=== PATIENT | male | born 1980 | race Caucasian/White ===

== ENCOUNTER 2024-08-29 09:01 | Emergency (ER) | payer OTHER, SELFPAY ==
[2024-08-29 09:01] VITALS: BP 161/100; PULSE 60; RESP 14; TEMP 36.6; O2SAT 98; BMI 25.7
--- NOTE | 2024-08-29 09:12 | EX.ED.UPPERE ---
HPI History of Present Illness HPI Narrative: Healthy 43-year-old male, [id number], injured his left ring finger at the tip and nail at work about an hour ago. Worker's Comp. injury. Injured by a heavy piece of pipe. No prior history. No prior hand surgery. Tetanus not up-to-date. Chief Complaint: Upper Extremity Injury Occured/Mechanism Mechanism/Context: Yes injury and Yes blunt trauma Onset/Context/Timing Onset: Today and Hours Context: Sudden Onset Timing: Continuous Quality of Pain: Sharp Current Severity: Moderate Maximum Severity: Moderate Associated Symptoms Associated Symptoms: Negative for Parasthesia, Weakness or Loss of Funtion Narrative Narrative: 43-year-old male [id number] laceration and blunt injury to his left ring finger at the nail and tip. Tetanus will need to be updated. Tetanus Immunization: >10 years Prior similar symptoms: No Recent Illness/Hospitalization: No PFSH [facility] Medical History (Updated 08/29/24 @ 10:[address] Isaac Rodriguez MD) BP (high blood pressure) Medical History no medical history no medical history Home Medications ?Medication ?Instructions ?Recorded ?Last Taken ?Type cephalexin 500 mg capsule 500 mg PO TID 7 days #21 caps 08/29/24 Unknown Rx Allergy/AdvReac Type Severity Reaction Status Date / Time No Known Allergies Allergy Verified 08/29/24 09:02 Social History Smoking Status: Current every day smoker tobacco type: cigarettes ROS ROS ED ROS Narrative Denies recent illness. Constitutional Constitutional ED: Denies chills or fever(s) Eyes Eyes: Denies blurry vision ENT ENT ED: Denies ear pain Cardiovascular Cardiovascular: Denies chest pain Respiratory/Chest Respiratory/Chest: Denies cough Gastrointestinal Gastrointestinal: Denies abdominal pain Genitourinary Genitourinary ED: Denies dysuria Musculoskeletal Musculoskeletal: Denies back pain Integumentary Denies abscess Neurologic Neurologic: Denies headache(s) Psychiatric Psychiatric: Denies anxiety Endocrine Endocrinology: Denies cold intolerance Hematologic/Lymphatic Hematologic/Lymphatic: Denies easy bleeding Allergic/Immunologic Allergic/Immunologic ED: Denies mouth swelling EXAM Physical Exam Narrative Exam Narrative: 43-year-old male sitting upright in bed. Vital signs stable afebrile. H EENT exam pupils round reactive light. Moist membranes. No trauma. Neck nontender no trauma. Lungs clear to auscultation bilaterally. Heart regular rhythm rate about 60 no murmur. Chest wall ribs nontender. Abdomen soft nontender. Moving all 4 extremities. Neurovascularly intact. Legs are nontender that edema. Specifically the left hand. Distal end of the left hand the nail is deformed and irregularly sitting in the bed. There is blood around it. There is a laceration on the distal end of the left ring finger on the radial side that will need repaired. There is about an 80+ percent subungual hematoma below the nail. He has normal flexion extension. Normal touch sensation. No foreign body noted. Neurologically is awake and alert. No focal motor deficits. Answering questions following commands. Const Vital Signs: 08/29/24 09:01 Temperature 98 F Temperature Source Temporal Pulse Rate 60 Respiratory Rate 14 Blood Pressure 161/100 H Blood Pressure Mean 120 Pulse Ox 98 Oxygen Delivery Method Room Air Positive well nourished and well developed; Negative for obese, cachectic, contractures or unkempt General Appearance ED: well developed and NAD; Negative for unkempt, cachectic, contractures, cyanotic or diaphoretic Nutritional Appearance: Negative for cachectic or obese HEENT Reports moist mucous membranes normocephalic and atraumatic; Negative for trauma or tenderness Eyes PERRL and EOMs intact bilaterally Neck full ROM and supple Chest Wall inspection of chest normal and palpation of chest normal Resp normal respiratory effort and clear to auscultation bilaterally Cardio regular rate, regular rhythm, S1 normal heart sound, S2 normal heart sound and no murmurs GI non-tender, non-distended and no masses Palpation: soft; Negative for tender or guarding Back/Spine no CVA tenderness Extremity normal to inspection and full ROM Extremity Narrative: Except the left hand. Left ring finger distal tip. Deformity of the nail. Blood mild bleeding. Laceration on the radial side of the distal end of the left ring finger at the distal phalanx. Normal flexion extension. Pain to palpation. General Extremety ED: Yes edema General Extremity: edema Neuro oriented x3, CN's II-XII intact bilaterally, moves all extremities, no focal motor deficits and no sensory deficits noted Sensorium / Orientation: alert, oriented to person, oriented to place and oriented to time; Negative for orientation impaired Motor Exam: strength 5/5 throughout Psych mental status grossly normal Appearance: Negative for unkempt Skin Lesions: no lesions Rashes: no rashes Trauma: laceration linear; Negative for no lacerations or abrasions MDM MDM MDM Narrative Medical decision making narrative: 43-year-old male with left ring finger laceration and deformity to the nail due to blunt trauma at work. This is Worker's Comp. Tetanus will be updated. His believes his tetanus is more than 10 years old. X-ray to be obtained for possible distal phalanx fracture. Digital block will be performed. I will remove the nail repair of the laceration and determine if there is a nailbed injury also. History & Record Review Discussion w/independent historian: Patient Procedures Lacerations Left ring finger laceration and nailbed repair:: Length: 2 in Depth: Sub Q Shape: Irregular Prep: Shure-Clens Laceration repair: Digital block, Irrigated, Lidocaine, Nerve block, Skin sutures and Wound explored Number of Sutures/[place]: 8 Suture Information: Vicryl (4 Vicryl 5 -0), Ethilon and - (Left ring finger distal laceration and nail and nailbed injury. Digital block. Area was cleaned with Shur-Clens to wash with saline. Explored. Once digital block given good anesthetic I was able to remove the nail. There is a significant laceration of the nailbed. He has an open fracture from ) Comment: 4 Ethilon sutures 4?0 Other Procedures Procedure(s): Left ring finger laceration and nailbed laceration repair. Digital block. Cleaned with Shur-Clens and washed and irrigated with saline. The laceration on the radial side of the left ring distal finger was closed with 4 simple interrupted 4-0 Ethilon sutures. The nailbed was closed using 4 simple interrupted 5-0 Vicryl sutures. The nail was removed. Cleaned and placed back underneath the eponychial skin. Patient was directed on wound care. It will be cleaned and dressed by nursing. Aluminum splint. Keep dry and clean. Antibiotic 3 times a day for 1 week to prevent wound infection due to the open fracture. Follow-up with plastic surgery. Discharge Plan Triage Chief Complaint: Upper Extremity Injury ED Provider: Isaac Rodriguez Dx/Rx/DC Orders Clinical Impression: Laceration of finger, ring, Encounter related to worker's compensation claim, Open fracture of phalanx of left ring finger, Nailbed injury Instructions: ED Fracture, Finger, Open, ED Laceration, Hand: All Closures, ED FINGERNAIL REMOVAL Prescriptions: New cephalexin 500 mg capsule 500 mg PO TID 7 Days Qty: 21 0RF Primary Care Provider: Care Physician,No Primary Referrals: [facility] [Group of Physicians] - 10 Day for suture removal Addi Ojeda MD [Med Staff - Plastering Supervisor] - 10 Day for suture removal Serge Yousif MD [Med Staff - Active Staff] - 5-7 Days Activity Restrictions/Additional Instructions: Keep the left ring finger dry, clean and covered. You can wash it daily to clean it off. Dry thoroughly. Apply antibiotic ointment twice daily to help try to prevent infection. Ice and elevate to decrease pain and swelling. Motrin for pain and swelling and Tylenol for pain. Stitches out in 10 days. Call and follow-up with the plastic surgeon Dr. Serge Marino for further evaluation. Print Language: Prydeinig Disposition Disposition: Home, Self Care
[2024-08-29] MEDS: Ibuprofen 400 MG Tablet 800 MG PO (09:21)
[2024-08-29] MEDS: Lidocaine 1% (20 ml mdv) 20 ML Vial 10 ML INFILT (09:23)
[2024-08-29] MEDS: Diphth,Pertuss(Acell),Tet Vac 0.5 ML Vial IM (09:23)
--- NOTE | 2024-08-29 09:32 | RAD_ITS ---
PROCEDURE: FINGER(S) MIN 2 VIEWS 08/29/2024 REASON FOR EXAM: LEFT RING FINGER AND NAIL INJURY TECHNIQUE: 3 view(s) of the left 4th finger. COMPARISON: No relevant prior. FINDINGS: Bones: Comminuted minimally displaced fracture of the ungual tuft. Joints: No dislocations or subluxations. Soft tissues: Soft tissue swelling at the fracture site. Other: No other significant findings. RAD/Finger(s) Min 2 Views IMPRESSION: Acute comminuted ungual tuft fracture of the 4th (ring) finger. Soft tissue swelling. Reading Location: [place] [id number]
== END 2024-08-29 11:52 | disposition home or self-care (01) ==
PROVIDERS: Emergency Provider Emergency Medicine; Visit Provider Emergency Medicine
DX: S61.315A Laceration without foreign body of left ring finger with damage to nail, initial encounter (principal); F17.210 Nicotine dependence, cigarettes, uncomplicated; Z23 Encounter for immunization; W22.8XXA Striking against or struck by other objects, initial encounter; Y99.0 Civilian activity done for income or pay
CPT/HCPCS: 11760; 73140; 90715; 99283